=== PATIENT | female | born 1965 | race Two or more races ===

== ENCOUNTER → 2020-09-23 08:00 | Outpatient (CLI) | payer OTHER ==
[~2020-09-23] VITALS: Ht 149.9 cm; Wt 93.0 kg
[~2020-09-23 08:00] MED LIST: ATENOLOL-CHLOR1 EACH PO; ATORVASTATIN CA10 MG PO; CLONAZEPAM2 MG PO; LUBRICANT EYE D10 M1 OP; ZYRTEC10 M3 PO
== END | disposition home or self-care (01) ==
LOC: LAB 08:00 → OB/GYN 09-30 07:00 → EDSTATUS 09-30 07:30 → OB/GYN 09-30 07:30
PROVIDERS: ATTEND Obstetrics & Gynecology
DX: N85.8 Other specified noninflammatory disorders of uterus (principal); Z01.810 Encounter for preprocedural cardiovascular examination; Z01.811 Encounter for preprocedural respiratory examination; N95.0 Postmenopausal bleeding; D25.0 Submucous leiomyoma of uterus; D25.9 Leiomyoma of uterus, unspecified

== ENCOUNTER 2020-12-14 07:43 | Outpatient (CLI) | payer OTHER | END 2020-12-14 07:46 | disposition home or self-care (01) | LOC: NUCLEAR 07:43 | PROVIDERS: ATTEND Radiology Nuclear Radiology | DX: C90.00 Multiple myeloma not having achieved remission (principal); C79.51 Secondary malignant neoplasm of bone | CPT/HCPCS: 78306; A9503 ==